=== PATIENT | female | born 1970 | race Caucasian/White ===

== ENCOUNTER 2019-04-01 15:33 | Emergency (ER) | payer SELFPAY ==
[~2019-04-01] VITALS: Ht 162.6 cm; Wt 65.0 kg
[2019-04-01 15:43] VITALS: Ht 162.6 cm; Wt 65.0 kg
--- NOTE | 2019-04-01 15:55 | ERD ---
ER Documentation Chief Complaint Chief Complaint BIB RA FOR EVALUATION OF ACCIDENTAL INGESTION OF CANDY WITH MARIJUANA HPI The patient is a 48-year-old female, presenting to the ER because she feels lightheadedness and bilateral hand numbness around 3 PM after ate some marijuana edible around 11 PM. It was the first time she had marijuana edible, she was well prior to having had the symptoms. She denies fever, chills, neck pain, chest pain, dyspnea, abdominal pain, vomiting, dysuria, diarrhea. She smokes and drinks Past medical/surgical history: None ROS All systems reviewed and are negative except as per history of present illness. Medications Home Meds No Active Prescriptions or Reported Meds Physical Exam Vitals Vital Signs Date Temp Pulse Resp B/P (MAP) Pulse Ox O2 O2 Flow FiO2 Time Delivery Rate 04/01/19 91 16 151/84 99 Room Air 16:23 (106) 04/01/19 98.9 90 17 124/82 99 15:43 (96) Physical Exam Const: No acute distress. Head: Atraumatic. Eyes: Normal Conjunctiva. ENT: Normal External Ears, Nose and Mouth. Neck: Full range of motion. No meningismus. Resp: Clear to auscultation bilaterally. Cardio: Regular rate and rhythm. Abd: Soft, non distended, normal bowel sounds, non tender. Skin: No petechiae or rashes. Back: No midline or flank tenderness. Ext: No cyanosis, or edema. Neur: Awake and alert. No focal deficit Psych: Anxious Procedures/MDM MEDICAL MAKING DECISION: The patient is a 48-year-old female, presenting with acute marijuana abuse, she has stayed in the ER for couple hours and felt much better, is stable for present follow-up The differential diagnoses considered include but are not limited to anxiety attack, panic attack, substance abuse Departure Diagnosis: Primary Impression: Marijuana abuse Condition: Good Comments The patient's blood pressure was elevated (>120/80) but appears stable without evidence of hypertension emergency or urgency. The patient was counseled about the risks of hypertension and urged to pursue outpatient monitoring and therapy within a week with their primary care physician. I discussed the findings with the patient. I advised the patient to follow-up with the primary physician in about 1-2 days, sooner if needed and return if any concern. Disclaimer: Inadvertent spelling and grammatical errors are likely due to EHR/dictation software use and do not reflect on the overall quality of patient care. Also, please note that the electronic time recorded on this note does not necessarily reflect the actual time of the patient encounter. DWAYNE CRUZ MD Apr 01, 2019 15:55
[2019-04-01 16:23] VITALS: BP 151/84; PULSE 91; RESP 16
== END 2019-04-01 17:34 | disposition home or self-care (01) ==
LOC: E/R 15:33
DX: F12.10 Cannabis abuse, uncomplicated (principal)
CPT/HCPCS: 99282

== ENCOUNTER 2019-04-27 17:30 | Emergency (ER) | payer SELFPAY ==
[~2019-04-27] VITALS: Ht 157.5 cm; Wt 78.0 kg
[~2019-04-27 17:30] MED LIST: CYCL10TA7 PO; IBUP-1542 PO
[2019-04-27 17:35] VITALS: BP 140/78; PULSE 78; RESP 18; Ht 157.5 cm; Wt 78.0 kg
[2019-04-27] MEDS ORDERED: KETOROLAC 60 MG INJ IM STA (18:26)
== END 2019-04-27 19:13 | disposition home or self-care (01) ==
LOC: FTE 17:30
DX: S09.90XA Unspecified injury of head, initial encounter (principal); I10 Essential (primary) hypertension; S29.012A Strain of muscle and tendon of back wall of thorax, initial encounter; W01.10XA Fall on same level from slipping, tripping and stumbling with subsequent striking against unspecified object, initial encounter; Y92.89 Other specified places as the place of occurrence of the external cause
CPT/HCPCS: 81025; 96372; 99284; J1885